=== PATIENT | female | born 1990 | race Hispanic/Latino ===

== ENCOUNTER 2024-12-20 19:25 | Emergency (ER) | payer OTHER ==
[~2024-12-20] VITALS: Ht 152.4 cm; Wt 70.8 kg
[2024-12-20] MEDS ORDERED: SODIUM CHLORIDE FLUSH 10 ML SYR IV PRN (19:45)
[2024-12-20 20:07] LABS: BASOPHILS % 0.5 % (0.0-1.0); EOSINOPHILS % 2.7 % (0.0-6.0); LYMPHOCYTES % 25.3 % (18.0-39.1); MONOCYTES % 6.7 % (4.4-11.3); NEUTROPHILS % 64.4 % (38.7-80.0); RED CELL DISTRIBUTION WIDTH 11.6 % (11.7-14.4)
[2024-12-20 20:30] LABS: EST GLOMERULAR FILTRATION RATE 97 ML/MIN (>=60)
[2024-12-20] MEDS ORDERED: KETOROLAC TROMETHAMINE 30 MG/ML VIAL ONE (23:32)
[2024-12-20] MEDS: KETOROLAC TROMETHAMINE 30 MG/ML VIAL IV STA (23:42)
[2024-12-21] MEDS ORDERED: FAMOTIDINE20 MG PO (01:21)
[2024-12-21] MEDS ORDERED: METFORMIN HCL500 MG PO (01:21)
[2024-12-21 01:32] VITALS: PULSE 84; RESP 18; TEMP 98.3; O2SAT 100
== END 2024-12-21 01:33 | disposition home or self-care (01) ==
LOC: ER 19:30
DX: R11.0 Nausea (principal); R07.89 Other chest pain; M54.9 Dorsalgia, unspecified
CPT/HCPCS: 36415; 71046; 76705; 80053; 83690; 84484; 84702; 85025; 93005; 94760; 99284; J1885